=== PATIENT | female | born 1955 | race Caucasian/White ===

== ENCOUNTER 2019-04-07 12:54 | Outpatient (CLI) | payer OTHER ==
--- NOTE | 2019-04-07 13:38 | RAD ---
EXAM: 2 views of the right hip HISTORY: Right hip pain COMPARISON: None FINDINGS: 2 views of the right hip shows no evidence of acute fracture or dislocation. No degenerativ e changes are seen. No soft tissue swelling is present. IMPRESSION: No evidence of acute osseous abnormality.
--- NOTE | 2019-04-07 13:39 | RAD ---
EXAM: 2 views of the left hip HISTORY: Left hip pain COMPARISON: None FINDINGS: 2 views of the left hip shows no evidence of acute fracture or dislocation. No degenerative changes are seen. No soft tissue swelling is present. IMPRESSION: No evidence of acute osseous abnormality.
== END 2019-04-07 12:55 | disposition home or self-care (01) ==
LOC: SCSRAD 12:54
PROVIDERS: ATTEND Chiropractor
DX: M25.551 Pain in right hip (principal); M25.552 Pain in left hip